=== PATIENT | female | born 1965 | race Caucasian/White ===

== ENCOUNTER → 2020-04-08 10:11 | Outpatient (CLI) | payer OTHER, SELFPAY ==
[2020-04-08 09:12] VITALS: BMI 25.9
[2020-04-08 12:37] LABS: Erythrocyte Sedimentation Rate 3 mm/hr (0-30)
[2020-04-08 12:39] LABS: Absolute Lymphocyte Count 1.86 X10^3/uL (0.83-4.51); Absolute Neutrophil Count 2.3 X10^3/uL (2.0-7.7); Basophil# 0.02 X10^3/uL; Basophil% 0.4 % (0-1); Eosinophils% 2.1 % (0-5); Hematocrit 44.7 % (37-47); Hemoglobin 14.2 g/dL (12.0-15.0); Lymphocyte # 1.86 X10^3/ul (4.0); Lymphocyte % 39.9 % (19-41); Mean Corp Hgb Conc 31.8 g/dL (32-36); Mean Corpuscular Volume 91.2 fL (81-99); Monocyte# 0.34 X10^3/uL; Monocyte% 7.3 % (0-10); NRBC Flagged by Analyzer 0 % (0-5); Neutrophil # 2.33 X10^3/uL (2.7-7.7); Neutrophil % 50.1 % (47-70); Platelet Count 292 K/mm3 (150-450); RBC Distribution Width SD 40.3 fl (35.1-43.9); White Blood Count 4.7 K/mm3 (4.4-11.0)
[2020-04-08 12:55] LABS: ALB/GLOB Ratio 1.1 RATIO (0.9-2.4); AST(SGOT) 22 U/L (15-37); Alanine Aminotransfer ALT/SGPT 33 U/L (13-56); Alkaline Phosphatase 84 U/L (45-117); Anion Gap 3 (5-15); BUN 14 mg/dL (7-18); BUN/Creat Ratio 16.9 RATIO (10-20); Calcium,Total 10.3 mg/dL (8.5-10.1); Chloride 111 mmol/L (98-107); Creatinine, Serum 0.83 mg/dL (0.55-1.02); EST Glomerular Filtration Rate 77 mL/min (>60); Est Glom Filt Rate - Afr Amer 93 mL/min (>60); Globulin 3.6 g/dL (2.2-4.2); Glucose 92 mg/dL (74-106); Lipase 328 U/L (73-393); Potassium 4.4 mmol/L (3.5-5.1); Protein, Total 7.6 g/dL (6.4-8.2); Sodium Level 140 mmol/L (136-145)
== END ==
PROVIDERS: PCP Internal Medicine; Referring Provider Internal Medicine; Visit Provider Internal Medicine
DX: R10.11 Right upper quadrant pain (principal)
CPT/HCPCS: 36415; 80053; 83690; 85025; 85652

== ENCOUNTER → 2020-04-17 07:26 | Outpatient (CLI) | payer OTHER, SELFPAY ==
[2019-09-16 10:39] VITALS: BMI 25.0
[2020-04-08 09:12] VITALS: BMI 25.9
--- NOTE | 2020-04-17 07:29 | BI_ITS ---
MAMMOGRAPHY - BILATERAL SCREENING REASON FOR EXAM: Female, 55 years old. Routine annual screening examination. PERTINENT HISTORY: Non-contributory. TECHNIQUE: Digital bilateral breast tristan (3D mammographic acquisition) in the CC and MLO projections. 2-D mediolateral oblique (MLO) and craniocaudad (CC) views of both breasts were obtained. CAD: Full Field Digital Mammography with Computer Added Detection was performed. COMPARISON: Comparison is made with prior outside examination dated 08/17/2017. FINDINGS: Breast Composition: The breasts are heterogeneously dense, which may obscure small masses. There are no dominant masses or suspicious calcifications. Stable small benign-appearing bilateral axillary lymph nodes. No other significant abnormalities are identified. There has been no significant change since the prior study. BI/SCRN MAMM (CAD)W/TRISTAN BILAT IMPRESSION: Stable bilateral screening mammogram. Yearly follow-up mammogram recommended. (A) ASSESSMENT CATEGORY: BIRADS Category 2: Benign. A letter regarding these results will be sent to the patient by the facility within 30 days. Approximately 10% of breast cancers are not detected by mammography. A normal mammogram should not delay biopsy of a clinically suspicious abnormality. [id number] Electronically Signed: Tre Menendez MD at 11:03 EST , Service support ,
== END ==
PROVIDERS: Referring Provider Obstetrics & Gynecology; Visit Provider Obstetrics & Gynecology
DX: Z12.31 Encounter for screening mammogram for malignant neoplasm of breast (principal)
CPT/HCPCS: 77063; 77067

== ENCOUNTER → 2021-08-13 | Outpatient (CLI) | payer OTHER, SELFPAY ==
--- NOTE | 2021-08-13 08:30 | BI_ITS ---
MAMMOGRAPHY - BILATERAL SCREENING REASON FOR EXAM: Female, 56 years old. Routine annual screening examination. PERTINENT HISTORY: Currently taken estrogen patch. Otherwise no other pertinent history. TECHNIQUE: Digital bilateral breast tristan (3D mammographic acquisition) in the CC and MLO projections. 2-D mediolateral oblique (MLO) and craniocaudad (CC) views of both breasts were obtained. CAD: Full Field Digital Mammography with Computer Added Detection was performed. COMPARISON: Mammogram from 04/17/2020 FINDINGS: Breast Composition: The breasts are heterogeneously dense, which may obscure small masses. There are no dominant masses or suspicious calcifications. No other significant abnormalities are identified. There has been no significant change since the prior study. BI/SCRN MAMM (CAD)W/TRISTAN BILAT IMPRESSION: Stable bilateral screening mammogram. Yearly follow-up mammogram recommended. (A) ASSESSMENT CATEGORY: BIRADS Category 1: Negative. A letter regarding these results will be sent to the patient by the facility within 30 days. Approximately 10% of breast cancers are not detected by mammography. A normal mammogram should not delay biopsy of a clinically suspicious abnormality. [id number] Electronically Signed: Omid Navarro, at 16:01 EDT ,
== END | disposition home or self-care (01) ==
LOC: OPBI 08:29
PROVIDERS: Referring Provider Obstetrics & Gynecology; Visit Provider Obstetrics & Gynecology
DX: Z12.31 Encounter for screening mammogram for malignant neoplasm of breast (principal)
CPT/HCPCS: 77063; 77067

== ENCOUNTER → 2022-05-04 | Outpatient (CLI) | payer OTHER, SELFPAY ==
--- NOTE | 2022-05-04 15:09 | CT_ITS ---
STUDY: CT CHEST WITHOUT CONTRAST REASON FOR EXAM: Female, 57 years old. Lung Nodule RADIATION DOSAGE (If Supplied By Facility): CTDIvol = ( 10.42 ) mGy, DLP = ( 406.08 ) mGycm TECHNIQUE: Transaxial imaging was performed without the administration of intravenous contrast material. Multiplanar coronal and sagittal images were reformatted. Individualized dose optimization techniques were used for this CT. COMPARISON: No relevant priors. FINDINGS: CHEST There is a 1.3 cm x 0.9 cm lobulated nodule in the left lower lobe as seen on axial image #89. Correlation with a PET scan is recommended. There is no demonstrated pleural abnormality. Normal heart and pericardium. Soft tissue prominence in the anterior mediastinum. This may represent a remnant of the thymus. Clinical correlation recommended. Normal hilar regions. Normal unenhanced pulmonary arteries. Normal aorta arch and descending thoracic aorta. Normal osseous structures. There is no demonstrated abnormality of the visualized upper abdomen. CT/Chest without Contrast IMPRESSION: 1.3 cm x 0.8 cm lobulated nodule in the left lower lobe as seen on axial image #89. Correlation with a PET scan is recommended. There is also evidence of prominent soft tissue density in the anterior mediastinum. This may represent a remnant of the thymus. Clinical correlation is recommended with respect to possible myasthenia gravis. Electronically Signed: Tre Menendez MD at 15:46 EST ,
== END | disposition home or self-care (01) ==
LOC: CT 15:08
PROVIDERS: Referring Provider Internal Medicine Critical Care Medicine; Visit Provider Internal Medicine Critical Care Medicine
DX: R91.1 Solitary pulmonary nodule (principal)
CPT/HCPCS: 71250

== ENCOUNTER 2023-02-10 08:32 | Day surgery (SDC) | payer OTHER, SELFPAY ==
[2023-02-10] VITALS (7 sets, daily range): BP systolic 94–114; BP diastolic 63–79; PULSE 63–95; RESP 16; TEMP 36.3–37.1; O2SAT 97–100; BMI 25.8
--- NOTE | 2023-02-10 | IMM_PTH ---
PATIENT: LUIS OLEA LOC: EN U#:[id number] AGE/SX: 57/F ROOM: RE02/10/[address]: Dr. Marcell Rao MD : 1965 BED: DIS: 02/10/2023 SPEC #: [id number] RECD: 02/13/23 14:15 STATUS: JCARLOS REQ #: [id number] YODIT: 02/10/23 00:[address]: Marcell Rao DEPT: IMMUNOHISTOCHEMISTRY RECD BY: Gabriela Alan ENTERED: 02/13/23 14:17 SP TYPE: IMMUNO OTHR DR: No Primary Care Phys Tissues: Descending colon Procedures: Synapto (add) CHROMO (add) KI-67 (add) P53 (add) NEUROFIL (add) Pankeratin (initial) S-100 (add) PHYSICIAN & INSTITUTION [place] [facility] [id number] SPECIMEN INFORMATION: Tissue Source: Descending colon polyp Clinical Info: Screening Specimen Number: [id number] CPT code: 71173, 63123 x6 METHODOLOGY: Deparaffinized sections of prefer/formalin-fixed tissue or PAP/DQ stained slides are incubated with monoclonal/polyclonal antibodies/oligonucleotide probes. Localization is made via biotin free immunoperoxidase method. Appropriate controls are performed and reacted as expected. Results on target cell population are indicated in the following table: RESULTS: ANTIBODY / CLONE RESULT AE1-3 (AE1/AE3/PCK26) negative S-100 (4C4.9) positive Neurofil (2F11) positive Chromo (LK2H10) negative Synapto (polyclonal) negative P53 (DO-7) positive, wild type Ki-67 (30-9) negative These tests were developed and their performance characteristics determined by [facility]. They may not have been cleared or approved by the U.S. Food and Drug Administration. The FDA has determined that such clearance or approval is not necessary. The above immunohistochemical/dualISH markers are ordered and reviewed by the Pathologist. INTERPRETATION: Descending colon polyp, biopsy: Consistent with ganglioneuroma. AM:chung 02/14/2023 Case has been reviewed in consultation with Dr. Contreras who concurs with the above diagnosis. IDC:IVÁN
[2023-02-10] MEDS: Lactated Ringers 1,000 ML 15 ML IV (08:56)
--- NOTE | 2023-02-10 09:08 | H&P.OPEN ---
HPI - General HPI Narrative LUIS OLEA, is a 57 F who presents for screening colonoscopy. Her last colonoscopy was 5 years ago was normal but she was told to repeat in 5 years. She thought it was due to her family history of colon cancer but it is only in 1 grandfather. She denies any abdominal pain or blood in the stool. [facility] Medical History (Updated 02/08/23 @ 11:50 by Angeline Patel) Encounter for Essure implantation Family hx of colon cancer Gastric reflux GERD (gastroesophageal reflux disease) Headache, migraine Hepatic adenoma Kidney stone Non-smoker Psoriasis Wears glasses Home Medications lactobacillus combination no.8 3 billion cell capsule (Adult Probiotic) 3,000 mmu cells PO DAILY 07/25/18 [History Last Taken Unknown] multivitamin,qm-[id number]-[id number] (Complete Multivitamin tablet) 1 tab PO DAILY 07/25/18 [History Last Taken Unknown] Allergy/AdvReac Type Severity Reaction Status Date / Time mustard Allergy Severe Hives Verified 02/10/23 08:47 Family History Grandmother Diabetes Myocardial infarction Grandfather Colon cancer Father Alcoholism Mother Arthritis hormone problem Other Cancer Surgical History History of endometrial ablation History of hysterectomy History of LAVH History of tonsillectomy Hx of appendectomy Hx of colonoscopy Social History (Updated 12/22/22 @ 09:08 by Charity Krishnamurthy) household members: spouse current occupational status: employed Smoking Status: Never smoker alcohol intake: current details: social caffeine: Yes what type of physical activity do you participate in: walking frequency: 3-4 times per week seatbelt use: always do you feel safe at home: Yes additional social history: [employer] 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 NO EXACT DIAGNOSIS) Hx Heart Attack: No Hx Congestive Heart Failure: No Hx Rheumatic Fever: No Hx Hypertension: No Hx Internal Defibrillator: No Hx Pacemaker: No Hx Cardiac Catheterization: No Hx Cardiac Surgery/Stents/Etc.: No Hx Stress Test: No Hx Pain in Legs when Walking/Leg Cramps: No Respiratory Chronic Cough: No HX of Shortness of Breath: No Hoarseness: No Hx Chronic Obstructive Pulmonary Disease (COPD): No Hx Asthma: No Hx Emphysema: No Hx Sleep Apnea: No CPAP: No BIPAP: No Hx Respiratory Tract Infection/Cold (presently): No Do You Snore Loudly (louder than talking or can be heard): No Do You Often Feel Tired/ Fatigued/ Sleepy Dring Daytime?: No Has Anyone Observed You Stop Breathing During Sleep?: No Result (for STOP score): Negative Hx Smoking: No Smoking Status: Never smoker Gastrointestinal Controlled With Meds: Yes (TAKES OMEPRAZOLE, ROLAIDS NEEDED) Hx Gastrointestinal Disorders: No Hx Gastrointestinal Bleed: No Hx Ulcer: No Hx Hiatal Hernia: No Difficulty Chewing/Swallowing: No Special diet followed at home: No Hx Unplanned Weight Loss of 20#: No HX Unplanned Weight Gain of 20#: No Neurological Hx Seizures: No HX Syncope/Blackout Spells/Unconsciousness: Yes (SYNCOPE WITH HEAVY MENSES) Hx Transient Ischemic Attacks (TIA): No Hx Multiple Sclerosis: No Hx Parkinson's Disease: No Hx Head/Neck Injury: No Hx Headaches: Yes (HORMONAL H/A) Hx Back Injury/Pain: No Recent Onset of Speech Difficulty: No Restless Legs: No Does patient have nerve stimulator: No Blood Disorder Hx Leukemia: No Bleeding Tendencies: No Hx Deep Vein Thrombosis: No Hx High Cholesterol: No Blood Transmitted Disease: No Hx Hepatitis: No Hx Cirrhosis: No Hx Anemia: No Hx Blood Disorders: No Reproduction : No Is Patient Lactating: No Hx Hysterectomy: No Hx Tubal Ligation: No (ESSURE) Are You Post Menopause: No Genitourinary Hx Renal Disease: No Musculoskeletal Hx Arthritis: Yes (OA) Hx Rheumatoid Arthritis: No Hx Gout: No Recent Onset of an Orthopedic Problem: No Endocrine Hx Diabetes: No Thyroid Disease: No Hx Steroid Therapy: Yes (TOPICAL STEROIDS WITHIN LAST YR) Psycho/Social Hx Substance Use: No Hx Alcohol Use: No Hx Anxiety: No Hx Depression: No Mental Illness: No Hx Dementia: No Miscellaneous Hx Cancer: No Recent Exposure to Contagious Disease: No Hx of C-Diff: No Any Loose Teeth: No Allergies mustard Allergy (Severe, Verified 02/10/23 08:47) Hives Throat and tongue swelling also Discharge Is Pt Admitted From a [facility], or a Correction: No After D/C, Where Do you Plan to Go: Return Home Vital Signs Vital Signs Vital Signs: 02/10/23 08:50 02/10/23 08:50 Temperature 97.3 F L Temperature Source Temporal Pulse Rate 72 Respiratory Rate 16 Respiratory Pattern Normal Blood Pressure 114/78 Blood Pressure Mean 90 Blood Pressure Source Monitor Blood Pressure Position Semi-Fowlers Blood Pressure Location Left Arm Pulse Ox 97 Oxygen Delivery Method Room Air Weight Weight: 160 lb 4.417 oz Body Mass Index (BMI) 25.8 Physical Exam Const alert and oriented x3 HEENT normocephalic Eyes PERRL Resp normal respiratory effort and normal air movement Cardio regular rate and regular rhythm GI soft to palpation, non-tender and non-distended Extremity normal to inspection Assessment & Plan Assessment/Plan (1) Encounter for screening for malignant neoplasm of colon: PLAN: I explained endoscopy in detail to the patient. I explained the risks including but not limited to stroke or heart attack with anesthesia, perforation of the GI tract, bleeding, infection. I explained that any of these could necessitate further emergency surgery. The patient understands and all questions were answered sufficiently. The patient wishes to proceed with procedure. Marcell Rao MD Pager: [facility] [address] [place] [address], [address] [place] [address] Office: Surgery Risks - Colonoscopy Risks Include but are not Limited To: Risks include but are not limited to: Bleeding, perforation requiring further surgery, inability to complete colonoscopy requiring barium enema.
--- NOTE | 2023-02-10 09:45 | COLBX_PTH ---
PATIENT: LUIS OLEA LOC: EN U#:[id number] AGE/SX: 57/F ROOM: RE02/10/[address]: Dr. Marcell Rao MD : 1965 BED: DIS: 02/10/2023 SPEC #: [id number] RECD: 02/10/23 11:36 STATUS: JCARLOS RELandon #: [id number] YODIT: 02/10/23 09:[address]: Marcell Rao DEPT: SURGICAL PATHOLOGY RECD BY: Estella Dang ENTERED: 02/10/23 12:26 SP TYPE: COLON BX OTHR DR: No Primary Care Phys Tissues: Descending colon Procedures: Surgery Specimen Level IV HEADER OPERATION: Colonoscopy - open access, polypectomy PRE-OP DIAGNOSIS: Screening TISSUE SUBMITTED: Polyp descending colon MICROSCOPIC DIAGNOSIS Descending colon polyp, biopsy: Benign galglioneuroma. See comment. AM:chung 02/13/2023 COMMENT Immunohistochemistry ([id number]) supports the above diagnosis. Case has been reviewed in consultation with Dr. Contreras who concurs with the above diagnosis. IDC:SJ MICROSCOPIC DESCRIPTION Slides are reviewed. GROSS DESCRIPTION Received in fixative is one container labeled with the patient's name and designated polyp descending colon. The specimen consists of one irregular fragment of light terrell soft tissue that measures 1.0 x 0.3 x 0.1 cm. The specimen is totally submitted in one cassette. / AM:chung 02/10/2023 TC:5 CPT: 00967
--- NOTE | 2023-02-10 10:09 | OP.COLON_ITS ---
Patient Name: Radha Anderson Procedure Date: 02/10/2023 9:42 AM Date of : 1965 Age: 57 Procedure: Colonoscopy Indications: Screening for colorectal malignant neoplasm Providers: Marcell Rao MD Medicines: Propofol per Anesthesia Patient Profile: Last Colonoscopy: several years ago. Complications: No immediate complications. Estimated blood loss: Minimal. Procedure: Pre-Anesthesia Assessment: - Prior to the procedure, a History and Physical was performed, and patient medications and allergies were reviewed. The patient's tolerance of previous anesthesia was also reviewed. The risks and benefits of the procedure and the sedation options and risks were discussed with the patient. All questions were answered, and informed consent was obtained. Prior Anticoagulants: The patient has taken no anticoagulant or antiplatelet agents. After reviewing the risks and benefits, the patient was deemed in satisfactory condition to undergo the procedure. After I obtained informed consent, the scope was passed under direct vision. Throughout the procedure, the patient's blood pressure, pulse, and oxygen saturations were monitored continuously. The pediatric colonoscope was introduced through the anus and advanced to the cecum, identified by appendiceal orifice and ileocecal valve. The colonoscopy was performed without difficulty. The patient tolerated the procedure well. The quality of the bowel preparation was good. The ileocecal valve, appendiceal orifice, and rectum were photographed. Scope In: 9:53:25 AM Scope Withdrawal Time 0 hours 5 minutes 54 seconds Scope Out: 10:04:30 AM Total Procedure Duration Time 0 hours 11 minutes 5 seconds Findings: The entire examined colon appeared normal on direct and retroflexion views. A polyp was found in the descending colon. The polyp was removed with a hot snare. Resection and retrieval were complete. Impression: - The entire examined colon is normal on direct and retroflexion views. - One polyp in the descending colon, removed with a hot snare. Resected and retrieved. Recommendation: - Discharge patient to home. - Resume previous diet. - Continue present medications. - Await pathology results. - Repeat colonoscopy in 5 years for surveillance based on pathology results. Procedure Code(s): --- Professional --- 28988, Colonoscopy, flexible; with removal of tumor(s), polyp(s), or other lesion(s) by snare technique Diagnosis Code(s): --- Professional --- Z12.11, Encounter for screening for malignant neoplasm of colon D12.4, Benign neoplasm of descending colon CPT copyright 2021 [employer]. All rights reserved. The codes documented in this report are preliminary and upon accounting machine mechanic review may be revised to meet current compliance requirements. Marcell Rao MD 02/10/2023 10:09:12 AM This report has been signed electronically. Number of Addenda: 0 Note Initiated On: 02/10/2023 9:42 AM
--- NOTE | 2023-02-10 10:09 | OP.CCLET_ITS ---
02/10/2023 No Primary Care Physician Re : Colonoscopy procedure for Radha Anderson Dear Care Physician This procedure was performed on Friday, February 10, 2023. My impressions and recommendations are as follows: Impressions : - The entire examined colon is normal on direct and retroflexion views. - One polyp in the descending colon, removed with a hot snare. Resected and retrieved. Recommendations : - Discharge patient to home. - Resume previous diet. - Continue present medications. - Await pathology results. - Repeat colonoscopy in 5 years for surveillance based on pathology results. My findings are described in the full procedure note, which is enclosed. If I can be of further assistance, please feel free to contact me at Doctor phone number(s): , Work: . Sincerely, Marcell Rao MD 02/10/2023 10:09:12 AM This report has been signed electronically.
== END 2023-02-10 10:54 | disposition home or self-care (01) ==
LOC: EN 08:32 → AC 08:33
PROVIDERS: Referring Provider Surgery; Visit Provider Surgery
PROC: 0DJD8ZZ Inspection of Lower Intestinal Tract, Via Natural or Artificial Opening Endoscopic (ICD-10-PCS; CPT 45378; principal; 2023-02-10 09:40)
DX: Z12.11 Encounter for screening for malignant neoplasm of colon (principal); D12.4 Benign neoplasm of descending colon
CPT/HCPCS: 45385; 88305; 88341; 88342; J2405